=== PATIENT | female | born 1960 | race Two or more races ===

== ENCOUNTER 2016-05-16 08:11 | Emergency (ER) | payer OTHER ==
[~2016-05-16] VITALS: Ht 172.7 cm; Wt 79.4 kg
[2016-05-16] MEDS ORDERED: predniSONE 20 MG TABLET ONE (08:26)
[2016-05-16] MEDS ORDERED: LEVOFLOXACIN (750 MG) 750 MG TABLET ONE (08:26)
[2016-05-16] MEDS ORDERED: IPRATROPIUM NEB FS 0.5 MG/2.5 ML AMPUL.NEB NEB ONE ×2 (08:30→09:00)
[2016-05-16] MEDS ORDERED: LEVOFLOXACIN (750 MG) 750 MG TABLET PO SCH (08:30)
[2016-05-16] MEDS ORDERED: predniSONE 20 MG TABLET PO ONE (08:30)
[2016-05-16] MEDS ORDERED: ALBUTEROL FS 2.5 MG/3 ML VIAL.NEB CONTNEB ONE ×2 (08:30→09:00)
[2016-05-16] MEDS ORDERED: ALBUTEROL FS 2.5 MG/3 ML VIAL.NEB ONE ×2 (08:34→08:58)
[2016-05-16] MEDS ORDERED: IPRATROPIUM NEB FS 0.5 MG/2.5 ML AMPUL.NEB ONE ×2 (08:34→08:59)
[2016-05-16 09:54] VITALS: BP 125/81
== END 2016-05-16 09:54 | disposition home or self-care (01) ==
LOC: ER 08:12
DX: J45.909 Unspecified asthma, uncomplicated (principal); I10 Essential (primary) hypertension; J44.9 Chronic obstructive pulmonary disease, unspecified; I67.1 Cerebral aneurysm, nonruptured; M19.90 Unspecified osteoarthritis, unspecified site; F17.200 Nicotine dependence, unspecified, uncomplicated; Z59.0 Homelessness; Z96.642 Presence of left artificial hip joint
CPT/HCPCS: 94640 ×3; 99285; A4606; J7512; Z7610

== ENCOUNTER 2016-05-17 08:26 | Emergency (ER) | payer OTHER ==
[~2016-05-17] VITALS: Ht 167.6 cm; Wt 83.9 kg
[2016-05-17] MEDS ORDERED: predniSONE 20 MG TABLET ONE (08:45)
[2016-05-17] MEDS ORDERED: ALBUTEROL FS 2.5 MG/3 ML VIAL.NEB ONE (08:50)
[2016-05-17] MEDS ORDERED: IPRATROPIUM NEB FS 0.5 MG/2.5 ML AMPUL.NEB ONE (08:51)
[2016-05-17] MEDS ORDERED: ALBUTEROL FS 2.5 MG/3 ML VIAL.NEB NEB ONE (09:00)
[2016-05-17] MEDS ORDERED: predniSONE 20 MG TABLET PO ONE (09:00)
[2016-05-17] MEDS ORDERED: IPRATROPIUM NEB FS 0.5 MG/2.5 ML AMPUL.NEB NEB ONE (09:00)
[2016-05-17 09:15] VITALS: BP 119/64
== END 2016-05-17 09:16 | disposition home or self-care (01) ==
LOC: ER 08:31
DX: J45.901 Unspecified asthma with (acute) exacerbation (principal); I10 Essential (primary) hypertension; J44.9 Chronic obstructive pulmonary disease, unspecified; F17.200 Nicotine dependence, unspecified, uncomplicated; Z59.0 Homelessness
CPT/HCPCS: 94640 ×2; 99284; A4606; J7512; Z7610

== ENCOUNTER 2018-08-08 10:27 | Emergency (ER) | payer OTHER ==
--- NOTE | 2018-08-08 11:00 | NUR ---
CALLED FOR TRIAGE NOT IN THE WAITING ROOM.
--- NOTE | 2018-08-08 11:15 | NUR ---
CALLED PT IN [place], NO RESPONSE.
--- NOTE | 2018-08-08 11:46 | NUR ---
patient left before triage.
== END 2018-08-08 11:46 | disposition left against medical advice (07) ==
LOC: ER 10:29
DX: Z53.21 Procedure and treatment not carried out due to patient leaving prior to being seen by health care provider (principal)

== ENCOUNTER 2019-09-03 18:39 | Emergency (ER) | payer OTHER ==
[~2019-09-03] VITALS: Ht 165.1 cm; Wt 75.7 kg
[2019-09-03 18:53] VITALS: BP 150/89
--- NOTE | 2019-09-03 19:10 | NUR ---
XRAY AT BEDSIDE
[2019-09-03] MEDS ORDERED: CYCLOBENZAPRINE 10 MG TABLET ONE (19:19)
[2019-09-03] MEDS ORDERED: KETOROLAC TROMETHAMINE INJ 30 MG/ML VIAL ONE (19:19)
[2019-09-03] MEDS ORDERED: KETOROLAC TROMETHAMINE INJ 60 MG/2 ML VIAL IM ONE (19:30)
[2019-09-03] MEDS ORDERED: CYCLOBENZAPRINE 10 MG TABLET PO ONE (19:30)
--- NOTE | 2019-09-03 19:45 | NUR ---
Patient discharged to home in stable condition. Written and verbal after care instructions given. Patient verbalizes understanding of instruction. ambulatory with a steady gait
== END 2019-09-03 19:46 | disposition home or self-care (01) ==
LOC: ER 18:44
DX: S30.0XXA Contusion of lower back and pelvis, initial encounter (principal); S50.02XA Contusion of left elbow, initial encounter; I10 Essential (primary) hypertension; J44.9 Chronic obstructive pulmonary disease, unspecified; Z96.642 Presence of left artificial hip joint; Z59.0 Homelessness; W01.0XXA Fall on same level from slipping, tripping and stumbling without subsequent striking against object, initial encounter; Y93.89 Activity, other specified; Y92.89 Other specified places as the place of occurrence of the external cause; Y99.8 Other external cause status
CPT/HCPCS: 72110; 73080; 96372; 99284; J1885